=== PATIENT | female | born 1960 | race Caucasian/White ===

== ENCOUNTER → 2019-12-23 | Outpatient (CLI) | payer OTHER, BC ==
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
== END ==
LOC: DXRAD 12:16
PROVIDERS: ATTEND Orthopaedic Surgery
DX: S52.692A Other fracture of lower end of left ulna, initial encounter for closed fracture (principal); M85.842 Other specified disorders of bone density and structure, left hand; M18.9 Osteoarthritis of first carpometacarpal joint, unspecified; V99.XXXA Unspecified transport accident, initial encounter; Y93.89 Activity, other specified; Y92.89 Other specified places as the place of occurrence of the external cause; Y99.8 Other external cause status
CPT/HCPCS: 73110

== ENCOUNTER → 2020-02-03 | Outpatient (CLI) | payer OTHER, BC ==
--- NOTE | 2020-02-03 14:26 | RAD ---
EXAM: 3 views left wrist DATE: 02/03/2020 12:00 AM INDICATION: Reason: FOLLOW UP FRACTURE / Spl. Instructions: / History: COMPARISON: No Prior FINDINGS: No evidence of acute fracture or dislocation. Decreased bone mineral density. Thumb CMC joint degenerative change. IMPRESSION: 1. Within the constraints of osteopenia, no evidence for acute fracture or dislocation. If there is persistent clinical concern for fracture, follow-up radiographs in 10-14 days is recommended. Electronically signed by: Tha June MD (02/03/2020 2:23 PM) ESTRELLA
== END | disposition home or self-care (01) ==
LOC: DXRAD 12:41
PROVIDERS: ATTEND Orthopaedic Surgery
DX: S52.692D Other fracture of lower end of left ulna, subsequent encounter for closed fracture with routine healing (principal); M19.032 Primary osteoarthritis, left wrist; M81.8 Other osteoporosis without current pathological fracture; X58.XXXD Exposure to other specified factors, subsequent encounter
CPT/HCPCS: 73110